=== PATIENT | female | born 1970 | race Caucasian/White ===

== ENCOUNTER 2018-03-22 05:49 | Emergency (ER) | payer BC, OTHER ==
[~2018-03-22] VITALS: Ht 167.6 cm; Wt 106.8 kg
[2018-03-22 05:54] VITALS: BP 169/90; PULSE 105; RESP 18; Ht 167.6 cm; Wt 106.8 kg
--- NOTE | 2018-03-22 06:48 | ERD ---
ER Documentation Chief Complaint Chief Complaint low back pain x 4 hours. states glf x 1 month ago HPI 47-year-old female, presents to the emergency department, requesting an MRI due to persistent lower back pain for 4 weeks after sustaining a ground-level fall 1 month ago. The patient states that she had a CT done already but she wants an MRI. She denies fevers, no chills, no distal weakness, numbness or tingling. ROS All systems reviewed and are negative except as per history of present illness. Medications Home Meds Active Scripts Baclofen* (Baclofen*) 10 Mg Tablet, 10 MG PO QHS, #10 TAB Prov:DEMETRI REYNOLDS MD 03/22/18 Ibuprofen* (Motrin*) 400 Mg Tab, 400 MG PO Q8, #15 TAB Prov:DEMETRI REYNOLDS MD 03/22/18 Allergies Allergies: Coded Allergies: No Known Drug Allergies (Verified Allergy, Unknown, 03/22/18) PMhx/Soc History of Surgery: Yes (C SECTION X2) Anesthesia Reaction: No Hx Cardiac Disorders: Yes (HTN) Hx Miscellaneous Medical Probl: Yes (DM) Hx Alcohol Use: No Hx Substance Use: No Hx Tobacco Use: No Smoking Status: Never smoker FmHx Family History: No diabetes, No coronary disease Physical Exam Vitals Vital Signs Date Temp Pulse Resp B/P (MAP) Pulse Ox O2 O2 Flow FiO2 Time Delivery Rate 03/22/18 97.6 105 18 169/90 99 05:54 (116) Physical Exam Const: No acute distress Head: Atraumatic Eyes: Normal Conjunctiva ENT: Normal External Ears, Nose and Mouth. Neck: Full range of motion. No meningismus. Resp: Clear to auscultation bilaterally Cardio: Regular rate and rhythm, no murmurs Abd: Soft, non tender, non distended. Normal bowel sounds Skin: No petechiae or rashes Back: Normal inspection, no vertebral tenderness, moderate lumbar muscle spasm. Full range of motion. Ext: No cyanosis, or edema Neur: Awake and alert Psych: Normal Mood and Affect Results 24 hrs Laboratory Tests Test 03/22/18 07:00 03/22/18 07:10 POC Beta HCG, Qualitative NEGATIVE Bedside Urine pH (LAB) 5.5 Bedside Urine Protein (LAB) Negative Bedside Urine Glucose (UA) 0.50% Bedside Urine Ketones (LAB) 1+ Bedside Urine Blood Trace-lysed Bedside Urine Nitrite (LAB) Negative Bedside Urine Leukocyte Esterase (L Negative Current Medications Medications Dose Sig/Yobani Start Time Status Last (Trade) Ordered Route PRN Stop Time Admin Dose Reason Admin Ketorolac 30 mg ONCE STAT 03/22/18 DC 03/22/18 Tromethamine IM 06:54 07:12 (Toradol) 03/22/18 07:00 DIAGNOSTIC IMAGING REPORT Patient: MICHAEL WYLIE : 1970 Age: 47 Sex: F MR #: [id number] DOS: 03/22/18 0654 Ordering MD: DEMETRI REYNOLDS MD Location: [facility] Room/Bed: PROCEDURE: Lumbar spine series CLINICAL INDICATION: Trauma TECHNIQUE: AP, lateral and coned lateral images lumbar spine were obtained COMPARISON: None FINDINGS: No evidence of acute fractures or subluxations. The bony mineralization is normal. No focal bony blastic or lytic lesions. Mild degenerative enthesopathy involving the lower thoracic and lumbar spine. IMPRESSION: 1. Mild degenerative changes without acute fractures or subluxations. RPTAT:AAJJ Physician Hebert Date Time Electronically viewed and signed by Physician Hebert on 03/22/2018 07:56 BM/ CC: DEMETRI REYNOLDS MD [id number] Procedures/MDM Differential diagnosis include but not limited to: lumbar sprain/strain, sciatica, herniated disk, UTI less likely pyelo, kidney stone. Neurovascular exa m grossly intact. no clinical findings suggestive of acute infectious process, no acute deformity, no edema, no rashes. Physical examination and clinical presentation consistent most likely with lumbar sprain. During the ED course the patient received treatment with Toradol IM presenting overall improvement of the symptoms. Results and clinical impression discussed with the patient who agrees with management. The patient is stable to be treated outpatient and will be discharged home with recommendations and close monitoring The patient was instructed to follow up with the primary care provider in the next 48h. If symptoms persist, worsen or new symptoms develop, then patient should return to the ED immediately. Instructions explained and given to patient with acknowledgment and demonstrated understanding. Disclaimer: Inadvertent spelling and grammatical errors are likely due to E HR/dictation software use and do not reflect on the overall quality of patient care. Also, please note that the electronic time recorded on this note does not necessarily reflect the actual time of the patient encounter. Departure Diagnosis: Primary Impression: Injury of back Additional Impressions: Low back strain Spinal enthesopathy, lumbar region Condition: Stable Additional Instructions: Thank you very much for allowing us to participate in your care. Your health and safety is our top priority at [facility]. Call your primary care doctor TOMORROW for an appointment during the next 2-4 days and bring all the information and medications prescribed. Have prescriptions filled and follow precisely the directions on the label. If the symptoms get worse and your provider is unavailable, return to the Emergency Department immediately. DEMETRI REYNOLDS MD Mar 22, 2018 06:48
[2018-03-22] MEDS ORDERED: KETOROLAC 30 MG INJ IM STA (06:54)
[2018-03-22] MEDS ORDERED: BACL10TA PO (07:29)
[2018-03-22] MEDS ORDERED: IBUP-1561 PO (07:29)
== END 2018-03-22 08:09 | disposition home or self-care (01) ==
LOC: FTE 05:49
DX: S39.012A Strain of muscle, fascia and tendon of lower back, initial encounter (principal); M46.06 Spinal enthesopathy, lumbar region; I10 Essential (primary) hypertension; E11.9 Type 2 diabetes mellitus without complications; W18.39XA Other fall on same level, initial encounter; Y92.9 Unspecified place or not applicable
CPT/HCPCS: 72100; 81003; 81025; 96372; J1885; Z7502

== ENCOUNTER 2018-08-06 05:45 | Day surgery (SDC) | payer OTHER ==
[2018-08-05 17:29] VITALS: BMI 35.6
[~2018-08-06] VITALS: Ht 167.6 cm; Wt 102.5 kg
[2018-08-06] VITALS (13 sets, daily range): BP systolic 74–140; BP diastolic 42–78; PULSE 96–140; RESP 17–22; Ht 167.6 cm; Wt 102.5 kg
[~2018-08-06 05:45] MED LIST: BACL10TA PO; IBUP-1561 PO
--- NOTE | 2018-08-06 06:43 | PREAC ---
Date/Time of Note Date/Time of Note DATE: 08/06/18 TIME: 06:41 Anesthesia Eval and Record Evaluation Time Pre-Procedure Interview DATE: 08/06/18 TIME: 06:41 Age 48 Sex female NPO: 8 hrs Preoperative diagnosis uterine lyomaoma Planned procedure hysteroscopy Past Medical History Past Medical History: Includes Cardio: HTN, Dyslipidemia Endo: Diabetes GI: Obesity Surgery & Anesthesia Issues No known issue Meds Anticoagulation: No Beta Baldemar within 24 hr: No Reason Beta Baldemar not given: Pt. not on B-Baldemar Active Scripts Baclofen* (Baclofen*) 10 Mg Tablet, 10 MG PO QHS, #10 TAB Prov:DEMETRI REYNOLDS MD 03/22/18 Ibuprofen* (Motrin*) 400 Mg Tab, 400 MG PO Q8, #15 TAB Prov:DEMETRI REYNOLDS MD 03/22/18 Meds reviewed: Yes Allergies Coded Allergies: No Known Drug Allergies (Verified Allergy, Unknown, 03/22/18) Allergies Reviewed: Yes Labs/Studies Labs Reviewed: Reviewed by anesthesiologist test: Negative Pre-procedure Exam Airway: Adequate mouth opening, Adequate thyromental dist Mallampati: Mallampati IV Teeth: Normal Lung: Normal Heart: Normal ASA Physical Status ASA physical status: 3 Emergency: None Pre-operative Attestations Prior to commencing anesthesia and surgery, the patient was re-evaluated, there was verification of: *The patient's identity *The results of appropriate recent lab work and preoperative vital signs *The above evaluation not changing prior to induction *Anesthetic plan, risk benefits, alternative and complications discussed with patient/family; questions answered; patient/family understands, accepts and wishes to proceed. MEKHI BOWERS DO August 06, 2018 06:43
[2018-08-06] MEDS ORDERED: OXYCODONE/ACETAMINOPHEN (5/325) TAB PO PRN ×2 (07:00)
[2018-08-06] MEDS ORDERED: hydrALAzine 20 MG INJ IV PRN (07:00)
[2018-08-06] MEDS ORDERED: HYDROmorphONE 1 MG/5 ML IV SYRINGE IV PRN ×3 (07:00)
[2018-08-06] MEDS ORDERED: LABETALOL HCL 20MG INJ IV PRN (07:00)
[2018-08-06] MEDS ORDERED: ONDANSETRON 4 MG INJ IV PRN (07:00)
--- NOTE | 2018-08-06 07:09 | HPN ---
Date/Time of Note Date/Time of Note DATE: 08/06/18 TIME: 07:08 Interval H&P Admission Note Pt. seen H&P reviewed: No system changes LEANDER BROWN MD August 06, 2018 07:09
[2018-08-06] MEDS ORDERED: SIMV20TA PO (07:10)
[2018-08-06] MEDS ORDERED: BENA10TA4 PO (07:10)
[2018-08-06] MEDS ORDERED: ASPI81TA52 PO (07:10)
[2018-08-06] MEDS ORDERED: EMPA25TA PO (07:11)
[2018-08-06] MEDS ORDERED: METF500T24 PO (07:11)
[2018-08-06] MEDS ORDERED: LIRA0.6P2 SQ (07:11)
[2018-08-06] MEDS ORDERED: METO-319 PO (07:12)
[2018-08-06] MEDS ORDERED: PROPOFOL 20 ML ONE ×2 (07:33→07:50)
[2018-08-06] MEDS ORDERED: LIDOCAINE 2% (SDV) 5 ML INJ ONE (07:33)
[2018-08-06] MEDS ORDERED: MIDAZOLAM 1 MG/ML 2 ML INJ ONE (07:33)
[2018-08-06] MEDS ORDERED: ONDANSETRON 4 MG INJ ONE (07:50)
[2018-08-06] MEDS ORDERED: FAMOTIDINE 20 MG INJ ONE (07:50)
[2018-08-06] MEDS ORDERED: FENTAnyl 50 MCG/ML VIAL ONE (08:00)
[2018-08-06] MEDS ORDERED: CEFAZOLIN 1 GM INJ ONE (08:05)
[2018-08-06] MEDS ORDERED: EPHEDrine 25 MG/5 ML SYG ONE (08:19)
[2018-08-06] MEDS ORDERED: FENTAnyl 50 MCG/ML VIAL IV PRN (08:30)
[2018-08-06] MEDS ORDERED: HYDROmorphONE 2 MG/ML SYG ONE (08:41)
--- NOTE | 2018-08-06 09:16 | PAC ---
Date/Time of Note Date/Time of Note DATE: 08/06/18 TIME: 09:15 Post-Anesthesia Notes Post-Anesthesia Note Last documented vital signs Vital Signs Date Temp Pulse Resp B/P (MAP) Pulse Ox O2 O2 Flow FiO2 Time Delivery Rate 08/06/18 98.5 96 18 108/73 98 Room Air 07:05 (85) Activity: WNL Respiratory function: WNL Cardiovascular function: WNL Mental status: Baseline Pain reasonably controlled: Yes Hydration appropriate: Yes Nausea/Vomiting absent: Yes Comments BP: 90/58 HR: 99 RR: 15 T: 98.8 SaO2: 100% PHYLICIA KAT MD August 06, 2018 09:16
--- NOTE | 2018-08-06 09:52 | PD.PPDC ---
CONSTRUCTION MGR Discharge Instruction Diagnosis [id number] Final Diagnosis: Fojum1l AUB Condition [id number] Patient Condition: Egwgn5t Stable Diet Ooiwv1Us Diet: Ihsbk1g Resume Regular Diet Activity/Restrictions [id number] Activity: Tzrob6f May Shower [id number] Restrictions: Dqprl2y No Driving No Sexual Activity Nothing in the Vagina No Mcpherson No Tampons, douche Follow-up Follow-up with Physician: 2, Week/Weeks Return to clinic for Tkczp5Dg STEERER Instructions: Gltuw9s Fever greater than 101 Chills Worsening abdominal pain Excessive Vaginal Bleeding More than 2 pads per hour Unable to tolerate diet LEANDER BROWN MD August 06, 2018 09:52
[2018-08-06] MEDS ORDERED: DIPHENHYDRAMINE 50 MG INJ IV ONE (11:30)
--- NOTE | 2018-08-08 05:46 | SIPON ---
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
--- NOTE | 2018-08-08 08:54 | OPR ---
DATE OF OPERATION: 08/06/2018 ADDENDUM: The cervix was extremely short cavity. Cavity was crooked with multiple instruments in order to grab the cervix to do the procedure and it took for 1 hour for just do the dilation and curettage because of the cervical length and position. After numerous times of trying grabbing the cervix and the os was somewhat dilated and the cavity was curetted as much as I could with obtaining scanty of tissue. At this condition, the hysteroscopy is very dangerous to perform because there is a high risk of uterine perforation, so hysteroscopy is no t attempted and only uterine curetting was obtained, which was with marked difficulty. Instruments w ere removed and procedure was completed, which was unsatisfactory and even hysteroscopy was not even tried to prevent the complication. Dictated By: JD FLORES/JODI Conf#: [id number] DID#: [id number] CC: JD BROWN MD;*EndCC*
--- NOTE | 2018-08-08 15:51 | OPR ---
DATE OF OPERATION: 08/06/2018 PREOPERATIVE DIAGNOSES: 1. Menorrhagia. 2. Submucous fibroid. POSTOPERATIVE DIAGNOSIS: Extremely short cervix and crooked uterine cavity. See pathological report . OPERATION PERFORMED: Dilatation and curettage. No hysteroscopy was attempted due to the risk of per foration of the uterus since the axis was crooked and with a short cervix and on top of the short cer vix, The cervix is face down and the cavity was macerated, which can cause the perforation of the [place]. No attempt of the hysteroscopy. ANESTHESIA: General. ANESTHESIOLOGIST: Dr. Lemus. PROCEDURE: Under the proper induction of general anesthesia, the patient was placed in the dorsal li thotomy position. Perineal area and vagina wall was prepped and draped in usual aseptic manner. Bim anual examination was inadequate due to the body habitus. Weighted speculum was introduced with a di fferent size of weighted speculum and the anterior retractor, which is Haylee retractors was enough t o identify the cervix because the cervix is extremely short with a large rectocele and the position o f cervix by valvular speculum and multiple size of the weighted speculum along with a Haylee retracto r, all the instrument was used for identifying the cervix, which was extremely difficult and the cerv ix was grasped with a single tooth tenaculum, which was extremely short and facing down. There was n o strong tissue to be grabbed by instrument in order to do the hysteroscopy. Incomplete dictation... Dictated By: JD FLORES/JODI Conf#: [id number] DID#: [id number] CC: JD BROWN MD;*EndCC*
== END 2018-08-06 11:30 | disposition home or self-care (01) ==
LOC: SDS 05:45
PROVIDERS: ATTEND Obstetrics & Gynecology
DX: D25.9 Leiomyoma of uterus, unspecified (principal); N92.0 Excessive and frequent menstruation with regular cycle; D25.0 Submucous leiomyoma of uterus; N88.3 Incompetence of cervix uteri
CPT/HCPCS: 58120; 82962; 86850; 86900; 86901; 88305; J0690; J1170; J2250; J2405; J3010; Z7512; Z7610